=== PATIENT | female | born 1960 | race Caucasian/White ===

== ENCOUNTER 2019-08-10 05:57 | Day surgery (SDC) | payer MEDICARE, OTHER ==
[~2019-08-10 05:57] MED LIST: AMLO10TA7 PO; CETI10TA59 PO; GLIP5 PO; HYDR-1475 PO; MELO-107 PO; MONT10TA21 PO; OMEP20 PO; SODIUM CHLORIDE 0.9% 0 ML ONE; TOPI25 PO
[2019-08-10] MEDS ORDERED: SODIUM CHLORIDE 0.9% 1,000 ML IV ONE (07:00)
[2019-08-31] MEDS ORDERED: GABA-533 PO (08:05)
[2019-08-31] MEDS ORDERED: METF-463 PO (08:05)
== END 2019-08-11 06:30 | disposition home or self-care (01) ==
LOC: SURGERY 05:57
PROVIDERS: ATTEND Internal Medicine Critical Care Medicine
DX: R05 Cough (principal); Z53.8 Procedure and treatment not carried out for other reasons
CPT/HCPCS: J7030

== ENCOUNTER 2019-08-31 06:46 | Day surgery (SDC) | payer MEDICARE, OTHER ==
[~2019-08-31] VITALS: Ht 149.9 cm; Wt 96.0 kg
[~2019-08-31 06:46] MED LIST changes: +CETI-450 PO; -CETI10TA59 PO; -SODIUM CHLORIDE 0.9% 0 ML ONE; +SODIUM CHLORIDE 0.9% 1,000 ML IV ONE; +SODIUM CHLORIDE 0.9% 1,000 ML ONE
[2019-08-31] MEDS ORDERED: LIDOCAINE 2% 30 ML JELLY TP ONE ×2 (06:47)
[2019-08-31] MEDS ORDERED: LIDOCAINE 4% 50 ML SOLUTION TP ONE ×2 (06:47)
[2019-08-31] MEDS ORDERED: ALBUTEROL SULFATE 2.5 MG/0.5 ML NEB SOLUTION NEB ONE ×2 (06:47)
[2019-08-31] MEDS ORDERED: BENZOCAINE 20% 50 MCG/SPRAY 57 GM TP ONE ×2 (06:47)
[2019-08-31] MEDS ORDERED: MIDAZOLAM HCL 2 MG/2 ML VIAL ONE (07:14)
[2019-08-31] MEDS ORDERED: FentaNYL CITRATE-PF 100 MCG/2 ML VIAL ONE (07:14)
[2019-08-31 07:52] LABS: GLUCOMETER DEV NAME(LOC) SDS.; GLUCOSE,POINT OF CARE 145 MG/DL (70-110)
[2019-08-31] MEDS ORDERED: LIDO1ADH63 TP (08:05)
[2019-08-31] MEDS ORDERED: GABA-1201 PO (08:05)
[2019-08-31] MEDS ORDERED: METF-911 PO (08:05)
[2019-08-31] MEDS ORDERED: HYDR-4455 PO (08:05)
[2019-08-31] MEDS ORDERED: ALBU8HFA IH (08:05)
[2019-08-31] MEDS ORDERED: METF-960 PO (08:05)
[2019-08-31] MEDS ORDERED: OXYB5XL PO (08:05)
[2019-08-31] MEDS ORDERED: BACL10TA PO (08:05)
[2019-08-31] MEDS ORDERED: CHOL500062 PO (08:05)
[2019-08-31] MEDS ORDERED: MethylPREDNISolone SOD SUCC 125 MG/2 ML VIAL IVP ONE (08:45)
[2019-08-31] MEDS ORDERED: MethylPREDNISolone SOD SUCC 125 MG/2 ML VIAL ONE (09:03)
[2019-08-31] MEDS ORDERED: OXYGEN THERAPY IH SCH (20:00)
== END 2019-08-31 11:30 | disposition home or self-care (01) ==
LOC: SURGERY 06:46
PROVIDERS: ATTEND Internal Medicine Critical Care Medicine
DX: R05 Cough (principal); R04.2 Hemoptysis; J34.89 Other specified disorders of nose and nasal sinuses; J98.8 Other specified respiratory disorders; J38.4 Edema of larynx; B37.0 Candidal stomatitis; E78.00 Pure hypercholesterolemia, unspecified; G47.30 Sleep apnea, unspecified; M17.0 Bilateral primary osteoarthritis of knee; Z98.890 Other specified postprocedural states; Z79.899 Other long term (current) drug therapy; R19.00 Intra-abdominal and pelvic swelling, mass and lump, unspecified site
CPT/HCPCS: 31623; 31624; 71045; 82962; 87015; 87070; 87101; 87205; 87206; 87220; 88112; 88184; 88185; 88312; J2250; J2930; J3010; J7030

== ENCOUNTER 2021-09-08 05:18 | Day surgery (SDC) | payer MEDICARE, MEDICAID ==
[~2021-09-08] VITALS: Ht 149.9 cm; Wt 90.9 kg
[~2021-09-08 05:18] MED LIST changes: -AMLO10TA7 PO; +ATOR10TA84 PO; +BACL20TA PO; -CETI-450 PO; +CHL25 PO; -GLIP5 PO; -HYDR-1475 PO; -MELO-107 PO; +METF-1211 PO; +MONT-35 PO; -MONT10TA21 PO; +OXYB5TAB20 PO; -SODIUM CHLORIDE 0.9% 1,000 ML IV ONE; -SODIUM CHLORIDE 0.9% 1,000 ML ONE; -TOPI25 PO
[2021-09-08] MEDS ORDERED: BENZOCAINE 20% 50 MCG/SPRAY 57 GM TP ONE (05:19)
[2021-09-08] MEDS ORDERED: LIDOCAINE 2% 5 ML JELLY TP ONE (05:19)
[2021-09-08 06:21] LABS: COVID AG,FIA SOURCE NASOPHARYNGEAL
[2021-09-08] MEDS ORDERED: SODIUM CHLORIDE 0.9% 1,000 ML IV ONE (06:30)
[2021-09-08] MEDS ORDERED: MELO-107 PO (07:04)
[2021-09-08] MEDS ORDERED: HYDR-4072 PO (07:08)
[2021-09-08] MEDS ORDERED: LIDO1ADH63 TP (07:11)
[2021-09-08] MEDS ORDERED: MIDAZOLAM HCL 5 MG/ML VIAL ONE (07:50)
[2021-09-08] MEDS ORDERED: FentaNYL CITRATE PF 100 MCG/2 ML VIAL ONE (07:50)
[2021-09-08 08:01] LABS: GLUCOMETER DEV NAME(LOC) SDS.; GLUCOSE,POINT OF CARE 125 MG/DL (70-110)
[2021-09-08] MEDS ORDERED: MethylPREDNISolone SOD SUCC 125 MG/2 ML VIAL IVP ONE (09:15)
[2021-09-08] MEDS ORDERED: MethylPREDNISolone SOD SUCC 125 MG/2 ML VIAL ONE (09:33)
[2021-09-08] MEDS ORDERED: OXYGEN THERAPY IH SCH (20:00)
== END 2021-09-08 11:45 | disposition home or self-care (01) ==
LOC: SURGERY 05:18
PROVIDERS: ATTEND Internal Medicine Critical Care Medicine
DX: J38.4 Edema of larynx (principal); B37.0 Candidal stomatitis; I10 Essential (primary) hypertension; E11.9 Type 2 diabetes mellitus without complications; Z79.899 Other long term (current) drug therapy; Z98.890 Other specified postprocedural states
CPT/HCPCS: 31623; 31624; 36415; 71045; 82962; 87015; 87070; 87101; 87206; 87220; 87426; 88112; 88184; 88185; 88312; C9803; J2250; J2930; J3010

== ENCOUNTER 2024-01-31 06:35 | Day surgery (SDC) | payer MEDICARE, OTHER ==
[~2024-01-31] VITALS: Ht 149.9 cm; Wt 81.8 kg
[~2024-01-31 06:35] MED LIST changes: +ATOR10TA PO; -ATOR10TA84 PO; +HYDR-4072 PO; +LIDO1ADH63 TP; +MELO-107 PO
[2024-01-31] MEDS ORDERED: ALBUTEROL SULFATE 2.5 MG/0.5 ML NEB SOLUTION NEB ONE (06:36)
[2024-01-31] MEDS ORDERED: LIDOCAINE 4% 50 ML SOLUTION TP ONE (06:36)
[2024-01-31] MEDS ORDERED: BENZOCAINE 20% 50 MCG/SPRAY 57 GM TP ONE (06:36)
[2024-01-31] MEDS ORDERED: LIDOCAINE 2% 11 ML JELLY TP ONE (06:36)
[2024-01-31] MEDS ORDERED: SODIUM CHLORIDE 0.9% 1,000 ML ONE (06:38)
[2024-01-31] MEDS ORDERED: MIDAZOLAM HCL 2 MG/2 ML VIAL ONE (07:26)
[2024-01-31] MEDS ORDERED: FentaNYL CITRATE PF 100 MCG/2 ML VIAL ONE (07:27)
[2024-01-31 07:50] LABS: GLUCOMETER DEV NAME(LOC) SDS.; GLUCOSE,POINT OF CARE 114 MG/DL (70-110)
[2024-01-31] MEDS: SODIUM CHLORIDE 0.9% 1,000 ML IV ONE (08:25)
[2024-01-31 08:50] VITALS: PULSE 67; RESP 16; O2SAT 100
[2024-01-31] MEDS ORDERED: MethylPREDNISolone SOD SUCC 125 MG/2 ML VIAL ONE (09:19)
[2024-01-31] MEDS: MethylPREDNISolone SOD SUCC 125 MG/2 ML VIAL IVP ONE (09:25)
== END 2024-01-31 11:30 | disposition home or self-care (01) ==
LOC: SURGERY 06:35
PROVIDERS: ATTEND Internal Medicine Critical Care Medicine
DX: R05.3 Chronic cough (principal); J38.4 Edema of larynx; B37.0 Candidal stomatitis; R04.2 Hemoptysis; J84.10 Pulmonary fibrosis, unspecified; J98.8 Other specified respiratory disorders; J98.09 Other diseases of bronchus, not elsewhere classified; Z85.21 Personal history of malignant neoplasm of larynx
CPT/HCPCS: 31623; 82962; 87206; 87101; 87220; 87070; 88108; 87186; 31624; 94640; 71045; 87015; J3010; J2250; J2919; J7030; J7613; Z7610